=== PATIENT | male | born 1945 | race Caucasian/White ===

== ENCOUNTER 2016-07-13 00:28 | Emergency (ER) | payer SELFPAY ==
[2016-07-13 00:32] VITALS: BP 125/86
--- NOTE | 2016-07-13 00:53 | EDM.PDOC ---
ED HPI Trauma - General Chief Complaint: Lower Extremity Injury/Pain Stated Complaint: LEFT ANKLE PAIN Time Seen by Provider: 07/13/16 00:46 Source: Reports: Patient, EMS, Family () History Limitations: Reports: No limitations - History of Present Illness INITIAL COMMENTS - FREE TEXT/NARRATIVE: The patient states that he was drinking at the [employer]. He said he did have a couple of beers and he walked out and slipped on the ice and he heard a crack in his left ankle. He has never broken a bone before. He has had a CABG and he is also had a brain aneurysm coiled. The patient does have a very large habitus. I never felt that the patient was intoxicated per se. I did do an x- ray and I did give him a copy of the x-ray that showed a fracture through the fibula. I did consider using fiberglass but I ended up using a boot and a walker. The patient was giving a card for the orthopedic surgeon who is small business consultant [facility]. The patient will be following up with him at the end of this week. I did offer the patient hydrocodone and he did decline. The patient did not have any pain while he was not moving the extremity. The patient was unable to walk and EMS did bring him in. The patient's range of motion was limited by his perception of pain. Without moving his extremity he had zero pain and when he did move it he would have a great deal of pain. Occurred When: just prior to arrival Occurred Where: other ([facility]) Method of Injury: fall Severity: moderate Pain/Injury Location: Reports: lower extremity, left Consciousness: Reports: no loss of consciousness, remembers incident Associated Symptoms: Reports: no other symptoms Allergies/ADRs: Allergies No Known Allergies Allergy (Verified 07/13/16 00:28) Home Medications: Ambulatory Orders Lisinopril/Hydrochlorothiazide [Lisinopril-Hctz 20-12.5 mg Tab] 1 each PO DAILY 07/13/16 [Confirmed 07/13/16] Past Medical History Cardiovascular History: Reports: High cholesterol, Hypertension Neurological History: Reports: Cerebral aneurysms - Past Surgical History Cardiovascular Surgical History: Reports: Coronary artery bypass Social & Family History - Tobacco Use Smoking Status *Q: Never Smoker Second Hand Smoke Exposure: No Review of Systems - Review of Systems Review Of Systems: See Below Constitutional: Reports: no symptoms Eyes: Reports: no symptoms Ears: Reports: no symptoms Nose: Reports: no symptoms Mouth/Throat: Reports: no symptoms Respiratory: Reports: no symptoms Cardiovascular: Reports: no symptoms Musculoskeletal: Reports: leg pain, joint pain, other (Ankle Pain) Skin: Reports: no symptoms Neurological: Reports: no symptoms Psychiatric: Reports: no symptoms Trauma Exam - Physical Exam Exam: See Below Exam Limited By: No limitations General Appearance: Reports: alert Head: Reports: atraumatic, normocephalic Respiratory Exam: Reports: no respiratory distress, lungs clear Cardiovascular: Reports: normal peripheral pulses, regular rate, rhythm, no murmur Extremities: Reports: tenderness, unable to bear weight, other (The patient does have pain in his left ankle. This appears to be lateral. He does have a good pedal Pulse. ) Skin: Reports: Normal color, Warm/dry Course - Vital Signs Last Recorded V/S: Last Vital Signs Temp 34.9 C L 07/13/16 00:29 Pulse 82 07/13/16 00:29 Resp 20 07/13/16 00:29 BP 125/86 07/13/16 00:29 Pulse Ox 97 07/13/16 00:29 Departure - Departure Time of Disposition: 01:55 Disposition: Home, Self-Care 01 Condition: good Clinical Impression: Fracture of fibula Fibula fracture Qualifiers: Encounter type: initial encounter Fibula location: distal Fracture type: closed Fracture morphology: unspecified fracture morphology Laterality: left Qualified Code(s): S82.832A - Other fracture of upper and lower end of left fibula, initial encounter for closed fracture Instructions: Tibial and Fibular Fracture, Adult Referrals: Dirk Augustin PA-C [Primary Care Provider] - Forms: ED Department Discharge Additional Instructions: Wear boot when active. When you do take it out of the boot try to keep it in the neutral position and try not to move the foot. Ice and elevate for comfort. Use the walker until you see the Orthopedic surgeon. Ibuprofen during the day. Pain medication as needed at night for breakthrough pain.
== END 2016-07-13 02:12 | disposition home or self-care (01) ==
LOC: VM.ED 00:28
DX: S82.832A Other fracture of upper and lower end of left fibula, initial encounter for closed fracture (principal); E78.00 Pure hypercholesterolemia, unspecified; I10 Essential (primary) hypertension; Z95.1 Presence of aortocoronary bypass graft; W00.0XXA Fall on same level due to ice and snow, initial encounter; Y92.89 Other specified places as the place of occurrence of the external cause
CPT/HCPCS: 73610-LT; 99283-GF; 99284

== ENCOUNTER 2019-03-10 06:56 | Day surgery (SDC) | payer SELFPAY ==
[~2019-03-10 06:56] MED LIST: Lactated Ringers 1,000 ML IV SCH; Sodium Chloride 0.9% 10 ML Syringe FLUSH PRN
[2019-03-10] MEDS ORDERED: Propofol 200 MG/20 ML SDV ONE ×2 (09:12→09:44)
[2019-03-10] MEDS ORDERED: Midazolam 1 MG/ML 2 ML SDV ONE (09:13)
[2019-03-10] MEDS ORDERED: fentaNYL 100 MCG/2 ML SDV ONE (09:13)
[2019-03-10 09:59] VITALS: PULSE 67
[2019-03-10 10:24] VITALS: BP 155/86
--- NOTE | 2019-03-10 13:47 | OR ---
DATE OF SURGERY: 03/10/2019. REFERRING PROVIDER: RADU Sharp. PRE-OPERATIVE DIAGNOSES: 1. Screening colonoscopy. This is the patient's first colonoscopy. There is no known family history of colon cancer. 2. Chronic constipation with chronic laxative use. POST-OPERATIVE DIAGNOSES: 1. 1 cm polyp at 15 cm from the anal verge. This was removed with hot snare. 2. Floppy redundant colon likely due to chronic constipation and chronic laxative use. 3. Normal distal ileum. 4. Moderate hemorrhoids. PROCEDURE: Colonoscopy with polypectomy x1 using hot snare. SURGEON: Shalom Causey M.D. ANESTHESIA: Monitored anesthesia care. BOWEL PREP: Good. Kee is a 73-year-old male who was brought to the endoscopy suite after discussing risks and benefits of the procedure. Informed consent was obtained for conscious sedation and colonoscopy with or without biopsy and/or polypectomy. We also discussed possibility of missed lesions. Pre-procedure exam was unremarkable. IV, oxygen, and monitors were placed. The patient was placed in the left lateral decubitus position. Sedation was administered and a digital rectal exam was performed which was remarkable for some moderate hemorrhoids. Colonoscope was passed into the rectum and slowly advanced all the way to the cecum. The patient did have floppy redundant colon which required some scope maneuvering and abdominal pressure from a couple assistance to obtain cecal intubation. Ileocecal valve was also intubated and distal ileum was normal in appearance. Cecum was viewed and photographed. The colonoscope was slowly withdrawn and the mucosa was closed observed in a direct circumferential manner. The ascending colon was unremarkable. The transverse colon was unremarkable. The descending colon was unremarkable. The sigmoid colon revealed 1 cm polyp at 15 cm from the anal verge, which was photographed and removed with hot snare. Retroflexion was performed and rectal mucosa revealed moderate hemorrhoids, not acutely inflamed. Scope was removed. The patient tolerated the procedure well. The patient was monitored until that baseline status. Discharge instructions were reviewed and the patient was discharged in good condition. COMPLICATIONS: None. TOTAL TIME: 28 minutes. ESTIMATED BLOOD LOSS: None. RECOMMENDATIONS/FOLLOW-UP: We will await results of path report to determine ideal followup interval. I would like to thank Dirk Augustin for this referral. DMB: 03/10/2019 10:58:27 MODL: 03/10/2019 13:39:47 /[id number]
== END 2019-03-10 11:05 | disposition home or self-care (01) ==
LOC: VM.SDS 06:56
PROVIDERS: ATTEND Family Medicine
DX: K59.09 Other constipation (principal); D12.5 Benign neoplasm of sigmoid colon; K64.9 Unspecified hemorrhoids
CPT/HCPCS: 00811; 45385; J2250; J2704; J3010; J7120; 45384

== ENCOUNTER 2021-09-04 17:33 | Emergency (ER) | payer OTHER, MEDICARE ==
[2021-09-04 17:44] VITALS: BP 112/69; PULSE 66
== END 2021-09-04 19:08 | disposition home or self-care (01) ==
LOC: VM.ED 17:33
DX: S93.402A Sprain of unspecified ligament of left ankle, initial encounter (principal); E66.9 Obesity, unspecified; Z68.30 Body mass index [BMI] 30.0-30.9, adult; Z79.899 Other long term (current) drug therapy; Z86.73 Personal history of transient ischemic attack (TIA), and cerebral infarction without residual deficits; Z95.1 Presence of aortocoronary bypass graft; Z79.82 Long term (current) use of aspirin; W00.0XXA Fall on same level due to ice and snow, initial encounter
CPT/HCPCS: 73610-LT; 99283; 99283-25

== ENCOUNTER 2022-01-07 17:49 | Emergency (ER) | payer MEDICARE, OTHER ==
[2022-01-07] MEDS ORDERED: Sodium Chloride 0.9% 10 ML Syringe FLUSH PRN (18:03)
[2022-01-07] MEDS ORDERED: Lactated Ringers 1,000 ML IV ONE (18:16)
[2022-01-07 18:52] LABS: PTT,PARTIAL THROMBOPLSTIN TIME 24.7 SEC (20.5-30.9)
[2022-01-07 18:57] LABS: ANION GAP 13.7 mmol/L (5-15); CHLORIDE,CL 103 mmol/L (98-107); ESTIMATED GFR 45 mL/min (>=60); SODIUM,NA 139 mmol/L (136-145)
[2022-01-07 19:02] LABS: CORONAVIRUS COVID-19 NAA NEGATIVE (NEGATIVE); RESPIRATORY SYNCYTIAL VIR NAA NEGATIVE (NEGATIVE)
[2022-01-07 20:13] VITALS: BP 111/64; PULSE 67
== END 2022-01-07 19:52 | disposition home or self-care (01) ==
LOC: VM.ED 17:49
DX: R19.7 Diarrhea, unspecified (principal); I25.119 Atherosclerotic heart disease of native coronary artery with unspecified angina pectoris; E78.00 Pure hypercholesterolemia, unspecified; I10 Essential (primary) hypertension; I25.2 Old myocardial infarction; E66.9 Obesity, unspecified; Z68.30 Body mass index [BMI] 30.0-30.9, adult; Z79.899 Other long term (current) drug therapy; Z79.82 Long term (current) use of aspirin; Z20.822 Contact with and (suspected) exposure to COVID-19
CPT/HCPCS: 0241U; 80053; 83605; 83735; 84100; 84484; 85025; 85610; 85730; 86140; 96360; 99283; 99284-25; J7120

== ENCOUNTER 2022-03-02 19:57 | Emergency (ER) | payer MEDICARE, OTHER ==
[2022-03-02 20:32] VITALS: BP 114/71; PULSE 80
[2022-03-02] MEDS ORDERED: Sodium Chloride 0.9% 10 ML Syringe FLUSH PRN (20:37)
[2022-03-02] MEDS ORDERED: Sodium Chloride 0.9% 1,000 ML IV SCH (20:45)
[2022-03-02 21:17] LABS: ANION GAP 14.9 mmol/L (5-15)
== END 2022-03-02 21:55 | disposition home or self-care (01) ==
LOC: VM.ED 19:57
DX: R00.2 Palpitations (principal); I45.81 Long QT syndrome; I25.10 Atherosclerotic heart disease of native coronary artery without angina pectoris; I10 Essential (primary) hypertension; I25.2 Old myocardial infarction; E66.9 Obesity, unspecified; Z68.39 Body mass index [BMI] 39.0-39.9, adult; Z79.899 Other long term (current) drug therapy; Z79.82 Long term (current) use of aspirin
CPT/HCPCS: 36415; 71045; 80048; 83735; 84443; 84484; 85025; 93005; 93010; 99284; 99285

== ENCOUNTER 2023-12-21 10:18 | Emergency (ER) | payer MEDICARE, OTHER ==
[2023-12-21 11:09] VITALS: BP 124/79; PULSE 68
== END 2023-12-21 11:02 | disposition home or self-care (01) ==
LOC: VM.ED 10:18
DX: M54.16 Radiculopathy, lumbar region (principal); R22.41 Localized swelling, mass and lump, right lower limb; I10 Essential (primary) hypertension; I25.2 Old myocardial infarction; I25.10 Atherosclerotic heart disease of native coronary artery without angina pectoris; E78.00 Pure hypercholesterolemia, unspecified; E66.9 Obesity, unspecified; Z79.82 Long term (current) use of aspirin; Z79.899 Other long term (current) drug therapy
CPT/HCPCS: 99283

== ENCOUNTER 2024-01-22 08:40 | Day surgery (SDC) | payer MEDICARE, OTHER ==
[~2024-01-22 08:40] MED LIST changes: -Sodium Chloride 0.9% 10 ML Syringe FLUSH PRN
[2024-01-22] MEDS ORDERED: fentaNYL 100 MCG/2 ML SDV ONE (10:17)
[2024-01-22] MEDS ORDERED: Propofol 200 MG/20 ML SDV ONE ×2 (10:17→11:01)
== END 2024-01-22 14:10 | disposition home or self-care (01) ==
LOC: VM.SDS 08:40
PROVIDERS: ATTEND Student in an Organized Health Care Education/Training Program
DX: Z12.11 Encounter for screening for malignant neoplasm of colon (principal); I10 Essential (primary) hypertension; K21.9 Gastro-esophageal reflux disease without esophagitis; E78.5 Hyperlipidemia, unspecified; I25.10 Atherosclerotic heart disease of native coronary artery without angina pectoris; E66.01 Morbid (severe) obesity due to excess calories; Z68.39 Body mass index [BMI] 39.0-39.9, adult; Z95.1 Presence of aortocoronary bypass graft; Z79.82 Long term (current) use of aspirin; Z79.899 Other long term (current) drug therapy; Z86.010 Personal history of colon polyps
CPT/HCPCS: 00812; 99100; J2704; J3010; J7120

== ENCOUNTER 2024-05-11 20:26 | Emergency (ER) | payer MEDICARE, OTHER ==
[2024-05-11] MEDS: Orphenadrine 60 MG/2 ML Inj IM ONE (20:55)
[2024-05-11] MEDS: HYDROmorphone 1 MG/ML Syringe SUBCUT ONE (20:56)
[2024-05-12 01:02] VITALS: BP 190/94; PULSE 80
== END 2024-05-11 21:04 | disposition home or self-care (01) ==
LOC: VM.ED 20:26
DX: M54.50 Low back pain, unspecified (principal); M79.661 Pain in right lower leg; I25.10 Atherosclerotic heart disease of native coronary artery without angina pectoris; I25.2 Old myocardial infarction; I10 Essential (primary) hypertension; E78.00 Pure hypercholesterolemia, unspecified; K21.9 Gastro-esophageal reflux disease without esophagitis; M19.90 Unspecified osteoarthritis, unspecified site; E66.9 Obesity, unspecified; Z68.41 Body mass index [BMI] 40.0-44.9, adult; Z86.73 Personal history of transient ischemic attack (TIA), and cerebral infarction without residual deficits; Z95.5 Presence of coronary angioplasty implant and graft; Z79.82 Long term (current) use of aspirin; Z79.899 Other long term (current) drug therapy
CPT/HCPCS: 96372; 99283; J1171; J2360

== ENCOUNTER 2024-06-01 06:14 | Emergency (ER) | payer MEDICARE, OTHER ==
[2024-06-01] MEDS: Take Home: Ondansetron 4 MG Tab.DIS, 5 Tab Pack PO ONE (07:12)
[2024-06-01 07:41] VITALS: BP 130/80; PULSE 72
== END 2024-06-01 07:24 | disposition home or self-care (01) ==
LOC: VM.ED 06:14
DX: H81.10 Benign paroxysmal vertigo, unspecified ear (principal); I10 Essential (primary) hypertension; I25.10 Atherosclerotic heart disease of native coronary artery without angina pectoris; I25.2 Old myocardial infarction; M19.90 Unspecified osteoarthritis, unspecified site; K21.9 Gastro-esophageal reflux disease without esophagitis; E78.00 Pure hypercholesterolemia, unspecified; E66.9 Obesity, unspecified; Z79.82 Long term (current) use of aspirin; Z79.899 Other long term (current) drug therapy; Z68.41 Body mass index [BMI] 40.0-44.9, adult
CPT/HCPCS: 99283; Q0162